=== PATIENT | male | born 1965 | race Caucasian/White ===

== ENCOUNTER 2024-06-22 08:26 | Outpatient (REF) | payer OTHER, SELFPAY ==
[2024-06-22 11:29] LABS: MANUAL DIFF FLAG NO
[2024-06-22 11:35] LABS: Basophils Absolute Auto 0.1 X10*3/uL (0.0-0.2); Basophils Percent Auto 1.3 % (0-2); Eosinophils Absolute Auto 0.3 X10*3/uL (0.0-0.4); Eosinophils Percent Auto 5.9 % (0-4); Hematocrit 44.8 % (42.0-52.0); Hemoglobin 14.4 g/dl (14.0-18.0); Imm Gran Abs Auto 0.01 X10*3/uL (0.00-0.03); Imm Gran Pct Auto 0.2 % (0.0-0.4); Lymphocytes Absolute Auto 1.8 X10*3/uL (1.2-4.9); Lymphocytes Percent Auto 32.1 % (20-40); Mean Corpuscular HGB Conc 32.1 g/dl (31.0-36.0); Mean Corpuscular Hemoglobin 27.9 pg (27.0-33.0); Mean Corpuscular Volume 86.8 fL (80.0-98.0); Mean Platelet Volume 10.2 fL (9.4-12.4); Monocytes Absolute Auto 0.6 X10*3/uL (0.1-1.2); Monocytes Percent Auto 11.5 % (2-11); Neutrophils Absolute Auto 2.7 x10*3/uL (2.0-8.3); Platelet Count 238 X10*3/uL (160-400); Red Blood Count 5.16 X10*6/uL (4.60-5.80); Red Cell Distribution Width 13.2 % (11.0-16.0); White Blood Count 5.5 X10*3/uL (4.8-10.8)
[2024-06-22 12:00] LABS: Alanine Aminotransferase 18 U/L (0-40); Alkaline Phosphatase 114 U/L (39-117); Anion Gap 11 (12-20); Aspartate Amino Transferase 24 U/L (5-37); Bilirubin Total 0.7 mg/dL (0.0-1.0); Blood Urea Nitrogen 17 mg/dL (9-16); Calcium 9.4 mg/dL (8.4-10.2); Carbon Dioxide 25 mmol/L (22-29); Chloride 108 mmol/L (96-108); Cholesterol 180 mg/dL (<200); Estimated Glomerular Filt Rate > 60; Glucose Random 105 mg/dL (60-115); HDL Cholesterol 38 mg/dL (>40); LDL Cholesterol Calculated 112 mg/dL (<100); Potassium 4.3 mmol/L (3.3-5.1); Sodium 140 mmol/L (135-145); Total Protein 7.4 g/dL (6.5-8.0); Triglycerides 151 mg/dL (<150)
== END 2024-06-22 08:27 | disposition home or self-care (01) ==
LOC: HO.HHCL 08:26
PROVIDERS: Visit Provider Internal Medicine Geriatric Medicine
DX: E66.811 Obesity, class 1 (principal); R12 Heartburn
CPT/HCPCS: 36415; 80053; 80061; 85025

== ENCOUNTER 2025-05-18 12:55 | Outpatient (REF) | payer OTHER, SELFPAY ==
[2025-05-18 14:08] LABS: MANUAL DIFF FLAG NO
[2025-05-18 14:47] LABS: Hematocrit 47.5 % (42.0-52.0); Hemoglobin 15.7 g/dl (14.0-18.0); Imm Gran Abs Auto 0.02 X10*3/uL (0.00-0.03); Imm Gran Pct Auto 0.3 % (0.0-0.4); Lymphocytes Absolute Auto 1.6 X10*3/uL (1.2-4.9); Mean Corpuscular HGB Conc 33.1 g/dl (31.0-36.0); Mean Corpuscular Hemoglobin 27.7 pg (27.0-33.0); Mean Corpuscular Volume 83.9 fL (80.0-98.0); NRBC Abs Auto 0.000 X10*3/uL (0.0-0.012); NRBC Pct Auto 0.0 /100WBC (0.0-0.2); Platelet Count 249 X10*3/uL (160-400); Red Blood Count 5.66 X10*6/uL (4.60-5.80); White Blood Count 6.4 X10*3/uL (4.8-10.8)
[2025-05-18 15:21] LABS: Alanine Aminotransferase 22 U/L (0-40); Albumin Level 4.5 g/dL (3.5-5.0); Alkaline Phosphatase 124 U/L (39-117); Anion Gap 10 (12-20); Aspartate Amino Transferase 22 U/L (5-37); Blood Urea Nitrogen 16 mg/dL (9-16); Calcium 9.5 mg/dL (8.4-10.2); Carbon Dioxide 24 mmol/L (22-29); Chloride 111 mmol/L (96-108); Estimated Glomerular Filt Rate > 60; Potassium 3.8 mmol/L (3.3-5.1); Sodium 141 mmol/L (135-145); Total Protein 7.9 g/dL (6.5-8.0)
== END 2025-05-18 12:56 | disposition home or self-care (01) ==
LOC: HO.LAB 12:55
PROVIDERS: PCP Internal Medicine Geriatric Medicine; Visit Provider Nurse Practitioner
DX: Z01.818 Encounter for other preprocedural examination (principal); Z80.0 Family history of malignant neoplasm of digestive organs; Z12.11 Encounter for screening for malignant neoplasm of colon
CPT/HCPCS: 36415; 80053; 85025

== ENCOUNTER 2025-05-18 12:55 | Outpatient (AMB) | payer OTHER, SELFPAY ==
--- NOTE | 2025-05-18 12:59 | MHC.OFFVIS ---
Vital Signs 05/18/25 13:16 Height 6 ft 5 in Weight 210 lb BMI 24.9 BP 128/74 Blood Pressure Location Rt brachial Position Sitting Pulse 68 Pulse Source Pulse Oximeter Pulse Oximetry (%) 98 Oxygen Delivery Method Room Air Intake Visit Reasons: [place] Screening Intake Note: New pt for recall colo screening w/ FMHx. Eval GERD. CC; C.O. intermittent GERD which PCP has trialed omeprazole for. Pt has finished the trial as of 2 weeks ago. Pt does believe that the omeprazole was helpful for the GERD. Pt believes last colo was ~ 10 years ago. Manager Business Planning Required: Yes Manager Business Planning Services: Manager Business Planning Present Manager Business Planning Name: Donald [id number] Information Interpreted: clinical only Accompanied by: Self / Same As Patient Allergies penicillin V Allergy (Unknown, Verified 06/28/24 13:21) Penicillins (PENICILLINS) Allergy (Unknown, Unverified 06/28/24 13:21) RASH Penicillin Allergy (Unknown, Uncoded 06/28/24 13:21) HPI HPI [place] Screening: Details: 59-year-old male here for preprocedural meeting to discuss a screening colonoscopy. He is referred by [facility]. PMX Obesity-BMI 32 PVD GERD Family history of colorectal cancer-father * SURGICAL HISTORY Colonoscopy 10 years ago ? [facility] * ALLERGIES PCN * [facility]: needs TODAY'S VISIT [place] [facility] He had a colonoscopy 10 years ago that to his memory was negative. He denies any bowel or upper GI problems. He denies any cardiac or respiratory problems. There are no prior problems with anesthesia or sedation. There are no infectious disease problems. [facility] Surgical History (Updated 05/18/25 @ 13:17 by MACARIO Anderson) H/O colonoscopy Family History (Updated 05/18/25 @ 13:03 by MACARIO Anderson) Father Colon cancer Review of Systems Const Denies fatigue, Denies fever(s), Denies night sweats, Denies poor appetite and Denies weight loss Eyes Details: glasses Reports requires corrective lenses ENT Reports Normal hearing present, Denies dental pain, Denies dysphagia, Denies hearing loss, Denies mouth pain, Denies odynophagia, Denies throat swelling, Denies tongue swelling and Reports other (Dentition adequate) Card Reports no additional complaints Resp Reports no additional complaints GI Details: Denies abdominal pain, Denies melena, Denies bloating, Denies hematochezia, Denies constipation, Denies GI cramping, Denies dysphagia, Denies excessive flatus, Denies early satiety, Denies heartburn, Denies diarrhea, Denies nausea, Denies odynophagia, Denies vomiting and Denies hematemesis Skin/Breast Denies pruritus, Denies lesions, Denies rash and Denies jaundice Neuro Reports Normal hearing present and Denies Abnormal speech present Endo Denies fatigue Aller/Immun Denies throat swelling and Denies tongue swelling Physical Exam Vital Signs: Last Vital Signs Pulse 68 05/18/25 13:16 BP 128/74 05/18/25 13:16 Pulse Ox 98 05/18/25 13:16 Oxygen Delivery Method Room Air 05/18/25 13:16 BMI result Body Mass Index 24.9 Const General: cooperative, no acute distress, well developed and well groomed Nutritional Appearance: well nourished and obese centrally obese Orientation/consciousness: oriented to person, oriented to place and oriented to time Limitations: language barrier HEENT Head: Yes normocephalic and Yes atraumatic Eyes General: appearance normal, both eyes and all related structures Pupils: Equal, round and reactive pupils present Neck Neck: Yes normal visual inspection and Yes no lymphadenopathy Thyroid: Thyroid normal Resp Effort & Inspection: normal respiratory effort and able to speak in complete sentences Auscultation: clear to auscultation bilaterally Cardio Rate: regular rate Rhythm: regular rhythm Heart sounds: Normal, physiologic split S2 sound present Peripheral pulses: radial pulses present and posterior tibial pulses present GI Inspection: No distended, No Abdominal panniculus present and Yes obesity Palpation (GI): Soft to palpation, nontender, no guarding, not rigid and No hepatosplenomegaly present Percussion: Yes normal to percussion Auscultation: normal bowel sounds Rectal Exam - Male: Yes deferred Skin General skin exam: no rashes or lesions noted, turgor normal, skin not dry, no jaundice, No spider nevi and no striae Rashes: no rashes Nails: normal Neuro General: oriented to person, oriented to place and oriented to time Cranial nerves: Yes Equal, round and reactive pupils present and Yes Normal hearing present Speech: No Abnormal speech present Extrem General: Yes normal to inspection, No clubbing, No cyanosis and No edema Psych Appearance: grossly normal and well kempt Mental Status: mental status grossly normal Speech and movement: Normal speech and movement present Affect: normal affect Attitude: cooperative Thought process: Normal thought process present and not confabulating Thought content: Normal thought content present Insight: Good insight present (Psych) Judgement: Good judgement present (Psych) Assessment & Plan Assessment & Plan (1) Family history of colon cancer in father: Comment: In 50's Code(s): Z80.0 - Family history of malignant neoplasm of digestive organs Category: Medical (2) Pre-op examination: Code(s): Z01.818 - Encounter for other preprocedural examination Category: Medical Plan 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 He denies any bowel or upper GI problems. He denies any cardiac or respiratory problems. There are no prior problems with anesthesia or sedation. There are no infectious disease problems. His father had colon cancer in his 50s. Orders: Orders Comprehensive Met. Panel Today Z01.818 - Encounter for other preprocedural examination, Z80.0 - Family history of malignant neoplasm of digestive organs Complete Blood Count Auto Diff Today Z01.818 - Encounter for other preprocedural examination, Z80.0 - Family history of malignant neoplasm of digestive organs Referrals GI Procedure Notification Z01.818 - Encounter for other preprocedural examination, Z80.0 - Family history of malignant neoplasm of digestive organs Medications: New peg 3350-electrolytes 236-22.74-6.74 -5.86 gram (Golytely) until fecal effluent is clear; do not exceed a total volume of 2,000 mL 240 mL PO Q10M 4,000 mL 0RF 1 day Z12.11 - Encounter for screening for malignant neoplasm of colon bisacodyl (Dulcolax (bisacodyl)) 10 mg (2 x 5 mg) PO BEDTIME 4 tabs 0RF 2 days Coding Level of Care Code New Pt Level 3 (34079) Diagnoses Family history of colon cancer in father Z80.0 Pre-op examination Z01.818
[2025-05-18 13:16] VITALS: BP 128/74; PULSE 68; O2SAT 98; BMI 24.9
== END 2025-05-18 13:39 | disposition home or self-care (01) ==
LOC: HO.HGI 12:56
PROVIDERS: PCP Internal Medicine Geriatric Medicine; Visit Provider Nurse Practitioner
DX: Z01.818 Encounter for other preprocedural examination (principal); Z12.11 Encounter for screening for malignant neoplasm of colon; Z80.0 Family history of malignant neoplasm of digestive organs
CPT/HCPCS: S0285